=== PATIENT | female | born 1980 ===

== ENCOUNTER → 2020-03-11 | Outpatient (CLI) | payer OTHER ==
[~2020-03-11] MED LIST: ACET325; ALBU90OI; ALBU90OI INH; ALBU90OI61 INH; BENZ100A PO; CEPH500 PO; CODACE30 PO; CODGUAEL PO; Cyclobenzaprine5 MG PO; IBUP600 PO; KETO10 PO; LEVFLO500 PO; MULVITMINE; MULVITMINE PO; Norco 5-325 Ta1 EACH PO; ONDA4 PO; PRED10 PO; PROCODE120 PO; PROM25 PO; RANI150 PO; Valium5 MG PO
== END | disposition home or self-care (01) ==
LOC: LAB SHORT 10:36 → LAB EV 10:36
DX: J20.9 Acute bronchitis, unspecified (principal); Z20.828 Contact with and (suspected) exposure to other viral communicable diseases
CPT/HCPCS: U0003

== ENCOUNTER → 2022-11-15 | Outpatient (CLI) | payer OTHER | END | disposition home or self-care (01) | LOC: LAB SHORT 09:20 → LAB 09:20 | DX: J02.9 Acute pharyngitis, unspecified (principal) | CPT/HCPCS: 87081 ==